=== PATIENT | male | born 1955 | race Caucasian/White ===

== ENCOUNTER 2017-08-17 09:41 | Emergency (ER) | payer MEDICAID ==
[~2017-08-17] VITALS: Ht 170.2 cm; Wt 80.0 kg
[~2017-08-17 09:41] MED LIST: NO MEDS
[2017-08-17] MEDS ORDERED: SODIUM CHLORIDE 0.9% 1,000 ML IV ONE (10:37)
[2017-08-17] MEDS ORDERED: ONDANSETRON HCL 4MG/2ML VIAL IV STA (10:37)
[2017-08-17] MEDS ORDERED: FAMOTIDINE 20MG/2ML VIAL IV ONE (10:45)
[2017-08-17 11:32] LABS: PROTHROMBIN TIME 10.2 sec (9.4-11.6)
[2017-08-17 11:34] LABS: CHLORIDE 107 mEq/L (98-107); ETHANOL BLOOD 262 mg/dL
[2017-08-17 11:36] LABS: BASOPHILS % 1.3 % (0.0-2.0); EOSINOPHILS % 2.4 % (0.0-5.0); HEMATOCRIT. 38.7 % (42.0-52.0); LYMPHOCYTES % 35.1 % (20.0-50.0); MEAN CORPUSCULAR VOLUME 95.3 fL (80.0-94.0); MONOCYTES % 7.1 % (2.0-8.0); NEUTROPHILS % 54.1 % (40.0-76.0); PLATELET 172 x1000/uL (130-400); RED BLOOD CELL COUNT 4.06 mill/uL (4.7-6.1)
[2017-08-17 12:53] LABS: CLARITY URINE CLEAR (CLEAR); COLOR URINE YELLOW (YELLOW); KETONES URINE NEGATIVE (NEGATIVE); LEUKOCYTE ESTERASE URINE NEGATIVE (NEGATIVE); NITRITE URINE NEGATIVE (NEGATIVE); OCCULT BLOOD URINE TRACE (NEGATIVE); PROTEIN URINE NEGATIVE (NEGATIVE); UROBILINOGEN URINE 0.2 E.U./dL (0.2-1.0)
[2017-08-17 13:19] LABS: *AMPHETAMINES SCREEN URINE NEGATIVE (NEGATIVE); *BARBITURATES SCREEN URINE NEGATIVE (NEGATIVE); CANNABINOID URINE SCREEN NEGATIVE (NEGATIVE); METHADONE URINE SCREEN NEGATIVE (NEGATIVE); OPIATES URINE SCREEN NEGATIVE (NEGATIVE); PHENCYCLIDINE URINE SCREEN NEGATIVE (NEGATIVE)
[2017-08-17 13:20] LABS: *BENZODIAZEPINES SCREEN URINE NEGATIVE (NEGATIVE); *COCAINE SCREEN URINE NEGATIVE (NEGATIVE)
[2017-08-17 14:56] VITALS: BP 145/99
== END 2017-08-17 14:56 | disposition home or self-care (01) ==
LOC: ER 09:54
DX: T51.0X1A Toxic effect of ethanol, accidental (unintentional), initial encounter (principal); E86.0 Dehydration; R05 Cough; M79.1 Myalgia; F17.200 Nicotine dependence, unspecified, uncomplicated; F12.10 Cannabis abuse, uncomplicated; Y92.89 Other specified places as the place of occurrence of the external cause
CPT/HCPCS: 36415; 71045; 80053; 80305; 81003; 83605; 83690; 84484; 85025; 85610; 87040; 87086; 93005; 96361; 96374; 96375; 99285; G0482; J2405; J3490; J7030

== ENCOUNTER 2017-09-26 15:37 | Emergency (ER) | payer MEDICAID ==
[~2017-09-26] VITALS: Ht 172.7 cm; Wt 70.0 kg
[2017-09-26] MEDS ORDERED: ACETAMINOPHEN 325MG TABLET PO ONE (19:30)
[2017-09-26 19:45] LABS: *AMPHETAMINES SCREEN URINE NEGATIVE (NEGATIVE)
[2017-09-26 19:46] LABS: *BARBITURATES SCREEN URINE NEGATIVE (NEGATIVE); *BENZODIAZEPINES SCREEN URINE NEGATIVE (NEGATIVE); *COCAINE SCREEN URINE NEGATIVE (NEGATIVE); METHADONE URINE SCREEN NEGATIVE (NEGATIVE); OPIATES URINE SCREEN NEGATIVE (NEGATIVE)
[2017-09-26 19:47] LABS: CANNABINOID URINE SCREEN PRESUMTIVE POSITIVE (NEGATIVE); PHENCYCLIDINE URINE SCREEN NEGATIVE (NEGATIVE)
[2017-09-26] MEDS ORDERED: SODIUM CHLORIDE 0.9% 1,000 ML IV ONE (22:30)
[2017-09-26 22:57] LABS: CLARITY URINE CLEAR (CLEAR); COLOR URINE DARK YELLOW (YELLOW); KETONES URINE NEGATIVE (NEGATIVE); LEUKOCYTE ESTERASE URINE NEGATIVE (NEGATIVE); NITRITE URINE NEGATIVE (NEGATIVE); OCCULT BLOOD URINE 2+ (NEGATIVE); PH URINE 6.5 (4.5-8.0); PROTEIN URINE 2+ (NEGATIVE); SPECIFIC GRAVITY URINE 1.023 (1.005-1.030)
[2017-09-27 02:19] VITALS: BP 140/76
== END 2017-09-27 02:34 | disposition home or self-care (01) ==
LOC: ER 15:51
DX: S00.11XA Contusion of right eyelid and periocular area, initial encounter (principal); F10.229 Alcohol dependence with intoxication, unspecified; E11.9 Type 2 diabetes mellitus without complications; F17.200 Nicotine dependence, unspecified, uncomplicated; Y08.89XA Assault by other specified means, initial encounter; Y93.89 Activity, other specified; Y92.89 Other specified places as the place of occurrence of the external cause; Y99.8 Other external cause status; Y90.8 Blood alcohol level of 240 mg/100 ml or more
CPT/HCPCS: 36415; 70450; 70486; 76870; 80305; 81003; 93976; 96360; 99285; G0482; J7030

== ENCOUNTER 2017-10-16 16:44 | Emergency (ER) | payer MEDICAID ==
[~2017-10-16] VITALS: Ht 172.7 cm; Wt 70.0 kg
[2017-10-16 16:46] VITALS: BP 107/63
== END 2017-10-16 18:17 | disposition left against medical advice (07) ==
LOC: ER 16:54
DX: M79.1 Myalgia (principal); Z53.21 Procedure and treatment not carried out due to patient leaving prior to being seen by health care provider

== ENCOUNTER 2017-12-14 11:41 | Emergency (ER) | payer MEDICAID ==
[~2017-12-14] VITALS: Ht 175.3 cm; Wt 87.0 kg
[2017-12-14 12:16] VITALS: BP 123/67
[2017-12-14 13:59] LABS: *AMPHETAMINES SCREEN URINE NEGATIVE (NEGATIVE); *BARBITURATES SCREEN URINE NEGATIVE (NEGATIVE); *BENZODIAZEPINES SCREEN URINE NEGATIVE (NEGATIVE); *COCAINE SCREEN URINE NEGATIVE (NEGATIVE); METHADONE URINE SCREEN NEGATIVE (NEGATIVE)
[2017-12-14 14:00] LABS: CANNABINOID URINE SCREEN NEGATIVE (NEGATIVE); OPIATES URINE SCREEN NEGATIVE (NEGATIVE); PHENCYCLIDINE URINE SCREEN NEGATIVE (NEGATIVE)
== END 2017-12-14 12:58 | disposition left against medical advice (07) ==
LOC: ER 11:41
DX: S70.212A Abrasion, left hip, initial encounter (principal); M79.605 Pain in left leg; M79.604 Pain in right leg; F10.229 Alcohol dependence with intoxication, unspecified; Y90.9 Presence of alcohol in blood, level not specified; X58.XXXA Exposure to other specified factors, initial encounter; Y93.89 Activity, other specified; Y92.89 Other specified places as the place of occurrence of the external cause
CPT/HCPCS: 80305; 99283

== ENCOUNTER 2017-12-22 18:07 | Emergency (ER) | payer MEDICAID ==
[~2017-12-22] VITALS: Ht 175.3 cm; Wt 80.0 kg
[2017-12-22 18:08] VITALS: BP 134/73
== END 2017-12-22 20:25 | disposition left against medical advice (07) ==
LOC: ER 18:07
DX: R53.1 Weakness (principal); F10.10 Alcohol abuse, uncomplicated; E11.9 Type 2 diabetes mellitus without complications; Z53.21 Procedure and treatment not carried out due to patient leaving prior to being seen by health care provider; Y90.9 Presence of alcohol in blood, level not specified

== ENCOUNTER 2017-12-24 17:07 | Emergency (ER) | payer MEDICAID ==
[~2017-12-24] VITALS: Ht 170.2 cm; Wt 78.0 kg
[2017-12-24 17:59] VITALS: BP 108/68
== END 2017-12-24 18:18 | disposition left against medical advice (07) ==
LOC: ER 17:07
DX: M79.1 Myalgia (principal); Z53.21 Procedure and treatment not carried out due to patient leaving prior to being seen by health care provider

== ENCOUNTER 2018-01-04 13:52 | Emergency (ER) | payer MEDICAID ==
[~2018-01-04] VITALS: Ht 172.7 cm; Wt 85.0 kg
[2018-01-04] MEDS ORDERED: IBUPROFEN 400MG TABLET PO ONE (14:30)
[2018-01-04 15:37] LABS: CLARITY URINE CLEAR (CLEAR); COLOR URINE YELLOW (YELLOW); KETONES URINE NEGATIVE (NEGATIVE); LEUKOCYTE ESTERASE URINE NEGATIVE (NEGATIVE); NITRITE URINE NEGATIVE (NEGATIVE); OCCULT BLOOD URINE TRACE (NEGATIVE); PH URINE 5.5 (4.5-8.0); PROTEIN URINE 1+ (NEGATIVE); SPECIFIC GRAVITY URINE 1.021 (1.005-1.030)
[2018-01-04 16:44] LABS: BASOPHILS % 1.9 % (0.0-2.0); HEMATOCRIT. 34.4 % (42.0-52.0); HEMOGLOBIN. 11.7 g/dL (14.0-18.0); LYMPHOCYTES % 38.3 % (20.0-50.0); MEAN CORPUSCULAR HEMOGLOBIN 32.9 pg (28.0-32.0); MEAN CORPUSCULAR VOLUME 96.5 fL (80.0-94.0); MONOCYTES % 8.2 % (2.0-8.0); NEUTROPHILS % 48.6 % (40.0-76.0); PLATELET 154 x1000/uL (130-400); RED BLOOD CELL COUNT 3.57 mill/uL (4.7-6.1); RED CELL DISTRIBUTION WIDTH 14.8 % (11.6-14.6)
[2018-01-04 16:48] LABS: CHLORIDE 105 mEq/L (98-107)
[2018-01-04 16:52] LABS: ETHANOL BLOOD 297 mg/dL
[2018-01-04 17:22] VITALS: BP 110/78
== END 2018-01-04 17:24 | disposition home or self-care (01) ==
LOC: ER 13:52
DX: N43.3 Hydrocele, unspecified (principal); K40.90 Unilateral inguinal hernia, without obstruction or gangrene, not specified as recurrent; F10.229 Alcohol dependence with intoxication, unspecified; Y90.8 Blood alcohol level of 240 mg/100 ml or more; R45.1 Restlessness and agitation; M79.605 Pain in left leg; M79.604 Pain in right leg; D53.9 Nutritional anemia, unspecified; R03.0 Elevated blood-pressure reading, without diagnosis of hypertension; S70.212A Abrasion, left hip, initial encounter; S30.810A Abrasion of lower back and pelvis, initial encounter; Y93.9 Activity, unspecified; X58.XXXA Exposure to other specified factors, initial encounter; Y92.9 Unspecified place or not applicable; F17.290 Nicotine dependence, other tobacco product, uncomplicated; Z71.6 Tobacco abuse counseling; Z59.0 Homelessness; F17.210 Nicotine dependence, cigarettes, uncomplicated
CPT/HCPCS: 36415; 76870; 80053; 81003; 85025; 93976; 99285; 99406; G0482

== ENCOUNTER 2018-01-17 15:46 | Emergency (ER) | payer MEDICAID | END 2018-01-17 17:16 | disposition left against medical advice (07) | LOC: ER 15:46 | DX: Z53.21 Procedure and treatment not carried out due to patient leaving prior to being seen by health care provider (principal) ==

== ENCOUNTER 2018-04-27 13:29 | Emergency (ER) | payer MEDICAID ==
[~2018-04-27] VITALS: Ht 172.7 cm; Wt 80.0 kg
[2018-04-27 16:11] VITALS: BP 146/88
== END 2018-04-27 18:45 | disposition left against medical advice (07) ==
LOC: ER 13:35
DX: M79.606 Pain in leg, unspecified (principal); Z53.21 Procedure and treatment not carried out due to patient leaving prior to being seen by health care provider

== ENCOUNTER 2018-07-17 12:24 | Emergency (ER) | payer MEDICAID ==
[~2018-07-17] VITALS: Ht 172.7 cm; Wt 75.0 kg
[2018-07-18] MEDS ORDERED: IBUPROFEN 600MG TABLET PO STA (02:05)
[2018-07-18] MEDS ORDERED: CLINDAMYCIN HCL 150MG CAPSULE PO ONE (02:15)
[2018-07-18 02:31] LABS: BASOPHILS % 1.1 % (0.0-2.0); EOSINOPHILS % 0.7 % (0.0-5.0); HEMATOCRIT. 34.8 % (42.0-52.0); HEMOGLOBIN. 11.7 g/dL (14.0-18.0); MEAN CORPUSCULAR VOLUME 97.6 fL (80.0-94.0); MEAN PLATELET VOLUME 8.4 fl (7.4-10.4); MONOCYTES % 5.5 % (2.0-8.0); NEUTROPHILS % 75.7 % (40.0-76.0); PLATELET 138 x1000/uL (130-400); RED BLOOD CELL COUNT 3.56 mill/uL (4.7-6.1); RED CELL DISTRIBUTION WIDTH 13.6 % (11.6-14.6)
[2018-07-18 02:37] LABS: CHLORIDE 102 mEq/L (98-107)
[2018-07-18 02:42] LABS: ETHANOL BLOOD 53 mg/dL
[2018-07-18 04:05] LABS: CLARITY URINE CLEAR (CLEAR); COLOR URINE DARK YELLOW (YELLOW); KETONES URINE TRACE (NEGATIVE); LEUKOCYTE ESTERASE URINE NEGATIVE (NEGATIVE); NITRITE URINE NEGATIVE (NEGATIVE); OCCULT BLOOD URINE 1+ (NEGATIVE); PROTEIN URINE 2+ (NEGATIVE); SPECIFIC GRAVITY URINE 1.023 (1.005-1.030)
[2018-07-18 04:32] LABS: *AMPHETAMINES SCREEN URINE NEGATIVE (NEGATIVE); *BARBITURATES SCREEN URINE NEGATIVE (NEGATIVE); *BENZODIAZEPINES SCREEN URINE NEGATIVE (NEGATIVE); *COCAINE SCREEN URINE NEGATIVE (NEGATIVE); METHADONE URINE SCREEN NEGATIVE (NEGATIVE); OPIATES URINE SCREEN NEGATIVE (NEGATIVE)
[2018-07-18 04:33] LABS: CANNABINOID URINE SCREEN PRESUMTIVE POSITIVE (NEGATIVE); PHENCYCLIDINE URINE SCREEN NEGATIVE (NEGATIVE)
[2018-07-18 08:00] VITALS: BP 156/83
== END 2018-07-18 09:51 | disposition left against medical advice (07) ==
LOC: ER 12:24
DX: M79.604 Pain in right leg (principal); G89.29 Other chronic pain; F17.200 Nicotine dependence, unspecified, uncomplicated; E11.9 Type 2 diabetes mellitus without complications; I10 Essential (primary) hypertension
CPT/HCPCS: 36415; 80053; 80305; 81003; 85025; 99283; Z7610

== ENCOUNTER 2018-10-06 19:49 | Emergency (ER) | payer MEDICAID ==
[~2018-10-06] VITALS: Ht 172.7 cm; Wt 77.0 kg
[2018-10-06 23:06] VITALS: BP 130/70
== END 2018-10-07 00:49 | disposition left against medical advice (07) ==
LOC: ER 20:36
DX: M79.18 Myalgia, other site (principal); Z53.21 Procedure and treatment not carried out due to patient leaving prior to being seen by health care provider
CPT/HCPCS: 82962

== ENCOUNTER 2018-10-20 14:12 | Emergency (ER) | payer MEDICAID ==
[~2018-10-20] VITALS: Ht 172.7 cm; Wt 85.0 kg
[2018-10-20 15:16] LABS: BASOPHILS % 0.2 % (0.0-2.0); EOSINOPHILS % 1.3 % (0.0-5.0); HEMATOCRIT. 37.1 % (42.0-52.0); HEMOGLOBIN. 12.4 g/dL (14.0-18.0); LYMPHOCYTES % 22.8 % (20.0-50.0); MEAN CORPUSCULAR HEMOGLOBIN 33.3 pg (28.0-32.0); MEAN CORPUSCULAR VOLUME 99.4 fL (80.0-94.0); MEAN PLATELET VOLUME 7.5 fl (7.4-10.4); MONOCYTES % 7.4 % (2.0-8.0); NEUTROPHILS % 68.3 % (40.0-76.0); PLATELET 164 x1000/uL (130-400); RED BLOOD CELL COUNT 3.74 mill/uL (4.7-6.1); RED CELL DISTRIBUTION WIDTH 14.5 % (11.6-14.6)
[2018-10-20 15:20] VITALS: BP 104/62
[2018-10-20 15:22] LABS: CHLORIDE 106 mEq/L (98-107)
[2018-10-20 15:30] LABS: CREATINE KINASE 378 IU/L (39-308)
[2018-10-20 15:33] LABS: CREATINE KINASE MB FRACTION 5.7 ng/mL (0.5-3.6)
[2018-10-20 15:43] LABS: ETHANOL BLOOD 422 mg/dL
[2018-10-20 16:28] LABS: *AMPHETAMINES SCREEN URINE PRESUMTIVE POSITIVE (NEGATIVE); *BARBITURATES SCREEN URINE NEGATIVE (NEGATIVE); *BENZODIAZEPINES SCREEN URINE NEGATIVE (NEGATIVE); *COCAINE SCREEN URINE NEGATIVE (NEGATIVE); METHADONE URINE SCREEN NEGATIVE (NEGATIVE); OPIATES URINE SCREEN NEGATIVE (NEGATIVE)
[2018-10-20 16:29] LABS: CANNABINOID URINE SCREEN PRESUMTIVE POSITIVE (NEGATIVE); PHENCYCLIDINE URINE SCREEN NEGATIVE (NEGATIVE)
== END 2018-10-20 17:00 | disposition home or self-care (01) ==
LOC: ER 14:17
DX: T51.0X1A Toxic effect of ethanol, accidental (unintentional), initial encounter (principal); M79.641 Pain in right hand; M79.672 Pain in left foot; M19.90 Unspecified osteoarthritis, unspecified site; R53.1 Weakness; E11.9 Type 2 diabetes mellitus without complications; I10 Essential (primary) hypertension; Z59.0 Homelessness; Y92.488 Other paved roadways as the place of occurrence of the external cause
CPT/HCPCS: 36415; 73130; 73630; 80305; 80320; 82550; 82553; 83880; 84443; 84484; 99284; G0480

== ENCOUNTER 2018-11-06 12:42 | Emergency (ER) | payer MEDICAID ==
[~2018-11-06] VITALS: Ht 180.3 cm; Wt 77.0 kg
[2018-11-06 12:46] VITALS: BP 109/62
== END 2018-11-06 14:29 | disposition left against medical advice (07) ==
LOC: ER 13:09
DX: Z53.21 Procedure and treatment not carried out due to patient leaving prior to being seen by health care provider (principal)

== ENCOUNTER 2018-11-13 17:17 | Emergency (ER) | payer MEDICAID ==
[~2018-11-13] VITALS: Ht 172.7 cm; Wt 90.0 kg
[2018-11-13 17:37] VITALS: BP 111/67
== END 2018-11-13 18:26 | disposition left against medical advice (07) ==
LOC: ER 17:17
DX: Z53.21 Procedure and treatment not carried out due to patient leaving prior to being seen by health care provider (principal)

== ENCOUNTER 2018-11-21 14:09 | Emergency (ER) | payer MEDICAID | END 2018-11-21 14:47 | disposition left against medical advice (07) | LOC: ER 14:09 | DX: Z53.21 Procedure and treatment not carried out due to patient leaving prior to being seen by health care provider (principal) ==

== ENCOUNTER 2018-12-08 13:58 | Emergency (ER) | payer MEDICAID ==
[~2018-12-08] VITALS: Ht 177.8 cm; Wt 82.0 kg
[2018-12-08] MEDS ORDERED: SODIUM CHLORIDE 0.9% 1,000 ML IV ONE (14:20)
[2018-12-08] MEDS ORDERED: KETOROLAC 30MG/ML VIAL IV STA (14:20)
[2018-12-08 15:04] LABS: BASOPHILS % 1.2 % (0.0-2.0); EOSINOPHILS % 1.8 % (0.0-5.0); HEMATOCRIT. 32.1 % (42.0-52.0); HEMOGLOBIN. 11.3 g/dL (14.0-18.0); LYMPHOCYTES % 29.8 % (20.0-50.0); MEAN CORPUSCULAR HEMOGLOBIN 34.8 pg (28.0-32.0); MEAN CORPUSCULAR VOLUME 99.3 fL (80.0-94.0); MEAN PLATELET VOLUME 8.3 fl (7.4-10.4); MONOCYTES % 12.1 % (2.0-8.0); NEUTROPHILS % 55.1 % (40.0-76.0); PLATELET 138 x1000/uL (130-400); RED BLOOD CELL COUNT 3.24 mill/uL (4.7-6.1); RED CELL DISTRIBUTION WIDTH 14.8 % (11.6-14.6)
[2018-12-08] MEDS ORDERED: DIATR MEGLU/DIATRIZOATE SOLN 30ML ONE (15:06)
[2018-12-08 15:12] LABS: CHLORIDE 110 mEq/L (98-107)
[2018-12-08 15:14] LABS: PROTHROMBIN TIME 10.2 sec (9.6-11.0)
[2018-12-08 15:29] LABS: ETHANOL BLOOD 347 mg/dL
[2018-12-08] MEDS ORDERED: POTASSIUM CHLORIDE 20MEQ TABLET SR PO ONE (16:30)
[2018-12-08 17:29] LABS: CLARITY URINE CLEAR (CLEAR); COLOR URINE YELLOW (YELLOW); KETONES URINE NEGATIVE (NEGATIVE); LEUKOCYTE ESTERASE URINE NEGATIVE (NEGATIVE); NITRITE URINE NEGATIVE (NEGATIVE); OCCULT BLOOD URINE NEGATIVE (NEGATIVE); PH URINE 6.5 (4.5-8.0); PROTEIN URINE NEGATIVE (NEGATIVE); SPECIFIC GRAVITY URINE 1.016 (1.005-1.030)
[2018-12-08] MEDS ORDERED: IOHEXOL-300 100 ML BOTTLE ONE (17:52)
[2018-12-08 18:08] LABS: *AMPHETAMINES SCREEN URINE NEGATIVE (NEGATIVE); *BARBITURATES SCREEN URINE NEGATIVE (NEGATIVE); *BENZODIAZEPINES SCREEN URINE NEGATIVE (NEGATIVE); *COCAINE SCREEN URINE NEGATIVE (NEGATIVE); METHADONE URINE SCREEN NEGATIVE (NEGATIVE); OPIATES URINE SCREEN NEGATIVE (NEGATIVE)
[2018-12-08 18:09] LABS: CANNABINOID URINE SCREEN PRESUMTIVE POSITIVE (NEGATIVE); PHENCYCLIDINE URINE SCREEN NEGATIVE (NEGATIVE)
[2018-12-08 18:40] VITALS: BP 150/98
== END 2018-12-08 19:06 | disposition left against medical advice (07) ==
LOC: ER 13:58
DX: F10.229 Alcohol dependence with intoxication, unspecified (principal); Y90.8 Blood alcohol level of 240 mg/100 ml or more; K40.20 Bilateral inguinal hernia, without obstruction or gangrene, not specified as recurrent; E87.0 Hyperosmolality and hypernatremia; E87.5 Hyperkalemia; I45.4 Nonspecific intraventricular block; N50.819 Testicular pain, unspecified; K70.0 Alcoholic fatty liver; E87.8 Other disorders of electrolyte and fluid balance, not elsewhere classified; J98.11 Atelectasis
CPT/HCPCS: 36415; 70450; 71045; 74177; 76870; 80053; 80305; 80320; 81003; 83690; 83880; 85025; 85610; 85730; 93005; 93976; 96374; 99284; J1885; J7030; Q9963; Q9967; G0480

== ENCOUNTER 2019-03-10 11:41 | Emergency (ER) | payer MEDICAID ==
[~2019-03-10] VITALS: Ht 170.2 cm; Wt 80.0 kg
[2019-03-10 12:10] VITALS: BP 124/80
[2019-03-10] MEDS ORDERED: FOLIC ACID 1 MG, THIAMINE HCL 100 MG, MVI, ADULT NO.1 10 ML in DEXTROSE 5% WATER 1,000 ML IV ONE ×4 (12:15)
== END 2019-03-10 12:49 | disposition left against medical advice (07) ==
LOC: ER 11:41
DX: F10.129 Alcohol abuse with intoxication, unspecified (principal); G92 Toxic encephalopathy; Y90.9 Presence of alcohol in blood, level not specified
CPT/HCPCS: 36415; 80320; 99283; J3411; J3490; J7070; G0480

== ENCOUNTER 2019-03-16 12:43 | Emergency (ER) | payer MEDICAID ==
[~2019-03-16] VITALS: Ht 172.7 cm; Wt 80.0 kg
[2019-03-16 12:50] VITALS: BP 119/68
== END 2019-03-16 12:56 | disposition left against medical advice (07) ==
LOC: ER 12:54
DX: Z53.21 Procedure and treatment not carried out due to patient leaving prior to being seen by health care provider (principal)

== ENCOUNTER 2019-03-21 09:47 | Emergency (ER) | payer MEDICAID ==
[~2019-03-21] VITALS: Ht 175.3 cm; Wt 73.0 kg
[2019-03-21 09:54] VITALS: BP 101/77
== END 2019-03-21 10:15 | disposition left against medical advice (07) ==
LOC: ER 10:00
DX: Z53.21 Procedure and treatment not carried out due to patient leaving prior to being seen by health care provider (principal)

== ENCOUNTER 2019-11-20 11:18 | Emergency (ER) | payer MEDICAID ==
[~2019-11-20] VITALS: Ht 172.7 cm; Wt 75.0 kg
[2019-11-20] MEDS ORDERED: SODIUM CHLORIDE 0.9% 1,000 ML IV ONE (11:28)
[2019-11-20] MEDS ORDERED: FOLIC ACID/VITAMIN B COMP W-C TABLET PO SCH (11:45)
[2019-11-20 13:30] VITALS: BP 101/68
== END 2019-11-20 13:41 | disposition home or self-care (01) ==
LOC: ER 11:18
DX: F10.129 Alcohol abuse with intoxication, unspecified (principal); Y90.0 Blood alcohol level of less than 20 mg/100 ml
CPT/HCPCS: 82962; 99283; J7030

== ENCOUNTER 2019-12-01 12:50 | Emergency (ER) | payer MEDICAID ==
[~2019-12-01] VITALS: Ht 170.2 cm; Wt 73.0 kg
[2019-12-01 12:54] VITALS: BP 110/68
== END 2019-12-01 13:15 | disposition left against medical advice (07) ==
LOC: ER 13:01
DX: Z53.21 Procedure and treatment not carried out due to patient leaving prior to being seen by health care provider (principal)